=== PATIENT | female | born 1975 | race Caucasian/White ===

== ENCOUNTER 2018-07-30 10:12 | Emergency (ER) | payer BC ==
[~2018-07-30] VITALS: Ht 172.7 cm; Wt 55.5 kg
[~2018-07-30 10:12] MED LIST: ALDACTONE 25MG25 M1 PO; ATIVAN 0.50.5 MG/TAB; NIGHT-TIME COL300 ML PO; PERCOCET 325 MG1 TA2 PO; TOPAMAX 25MG25 M1; XANAX .25M0.25 MG/TA
[2018-07-30 10:16] VITALS: BP 127/76
[2018-07-30 10:43] LABS: COLLECTION METHOD CLEAN CATCH
[2018-07-30 10:50] LABS: BASO % 0.3 % (0.0-2.0); EOS # 0.1 (0.0-0.7); EOS % 0.6 % (0-4.0); GRAN # 7.5 (1.4-6.5); GRAN % 72.5 % (42.2-75.2); HEMATOCRIT 42.8 % (37.0-47.0); LYMPH # 2.2 (1.2-3.4); LYMPH % 20.8 % (20.0-51.0); MEAN CELL VOLUME 84 fl (80.0-100.0); MEAN CORPUSCULAR HEMOGLOBIN 27 pg (27.0-31.0); MEAN CORPUSCULAR HGB CONC 33 g/dl (33.0-37.0); MEAN PLATELET VOLUME 10.2 fl (7.4-10.4); MONO # 0.6 (0.1-0.6); MONO % 5.6 % (1.7-9.3); PLATELET COUNT 240 K/mm3 (130-400); RED BLOOD COUNT 5.12 M/mm3 (4.10-5.30)
[2018-07-30 10:51] LABS: MUCOUS Present /lpf; PH 6 (5-8); SQUAMOUS EPITHELIAL 0-2 /hpf; URINE APPEARANCE Clear; URINE BACTERIA Rare /hpf; URINE BILIRUBIN Negative (NEGATIVE); URINE BLOOD 1+ (NEGATIVE); URINE COLOR Yellow; URINE GLUCOSE Negative (NEGATIVE); URINE KETONE Trace (NEGATIVE); URINE LEUKOCYTE ESTERASE Negative (NEGATIVE); URINE NITRATE Negative (NEGATIVE); URINE PROTEIN(semi-quant) Negative (NEGATIVE); URINE RBC 0-2 /hpf; URINE UROBILINOGEN Negative (NEGATIVE)
[2018-07-30 10:59] LABS: TRICYCLIC ANTIDEPRESS URINE NEGATIVE
[2018-07-30 11:01] LABS: ALANINE AMINOTRANSFERASE 23 U/L (9-52); ALBUMIN 4.8 gm/dL (3.5-5.0); ALKALINE PHOSPHATASE 78 U/L (50-136); ANION GAP 5 mmol/L (7-16); AST,SGOT 19 U/L (15-37); BILIRUBIN,TOTAL 0.3 mg/dL (0.0-1.0); BLOOD UREA NITROGEN 9 mg/dL (7-17); CALCIUM 9.7 mg/dL (8.4-10.2); CARBON DIOXIDE 31 mmol/L (22-30); CHLORIDE 104 mmol/L (98-107); CREATININE, serum 0.61 mg/dL (0.52-1.25); GLUCOSE 108 mg/dL (74-106); MAGNESIUM 1.7 mg/dL (1.6-2.3); PHOSPHOROUS 2.5 mg/dL (2.5-4.5); POTASSIUM 4.6 mmol/L (3.4-5.0); SODIUM 140 mmol/L (137-145); TOTAL PROTEIN 8.1 gm/dL (6.4-8.2)
[2018-07-30 11:07] LABS: ACETAMINOPHEN < 10 ug/mL (10-30); ALCOHOL(ethanol),MEDICAL < 10 mg/dL; SALICYLATE < 1.0 mg/dL
[2018-07-30] MEDS ORDERED: ATIVAN 1MG T1 MG/TAB PO (12:55)
[2018-07-30] MEDS ORDERED: DESYREL 50MG50 MG PO (13:42)
[2018-07-30] MEDS ORDERED: LEXAPRO 5MG5 MG PO (13:42)
[2018-07-30] MEDS ORDERED: AMOXICILLIN 50500 MG PO (13:51)
[2018-07-30 14:25] VITALS: PULSE 78; TEMP 98.7
== END 2018-07-30 14:28 | disposition home or self-care (01) ==
LOC: COL.ER 10:12
PROVIDERS: Emergency Medicine
DX: R45.851 Suicidal ideations (principal); F41.9 Anxiety disorder, unspecified; F17.210 Nicotine dependence, cigarettes, uncomplicated

== ENCOUNTER → 2018-11-28 | Outpatient (CLI) | payer BC ==
[~2018-11-28] MED LIST changes: +AMOXICILLIN 50500 MG PO; +ATIVAN 1MG T1 MG/TAB PO; +DESYREL 50MG50 MG PO; +LEXAPRO 5MG5 MG PO
== END ==
LOC: ZCOL.LAB 13:55
DX: J32.4 Chronic pansinusitis (principal)

== ENCOUNTER 2019-10-19 12:30 | Emergency (ER) | payer BC ==
[~2019-10-19] VITALS: Ht 172.7 cm; Wt 54.5 kg
[2019-10-19 12:46] VITALS: BP 123/81; TEMP 99.1
[2019-10-19] MEDS ORDERED: INDERAL 20MG20 MG PO (13:21)
[2019-10-19] MEDS ORDERED: LUNESTA2 MG PO (13:22)
[2019-10-19 13:24] VITALS: PULSE 89
== END 2019-10-19 13:24 | disposition home or self-care (01) ==
LOC: COL.ER 12:30
DX: J39.2 Other diseases of pharynx (principal); F41.9 Anxiety disorder, unspecified